=== PATIENT | female | born 1985 | race Caucasian/White ===

== ENCOUNTER 2017-08-14 14:14 | Outpatient (CLI) | payer OTHER ==
--- NOTE | 2017-08-14 15:55 | MRI ---
CERVICAL SPINE MRI WITHOUT IV CONTRAST: HISTORY: A 32-year-old female with a history of neck pain with right shoulder and right arm radiculopathy. Multiplanar, multisequence MR examination of the cervical spine is performed. Mild generalized disk desiccation changes and ligamentum and facet hypertrophic changes are noted. C2-C3 and C3-4 disks are unremarkable without canal or lateral recess or foraminal stenosis. At C4-C5, there is some minute disk bulging without significant canal, lateral recess, or foraminal s tenosis. At C5-C6, there are somewhat nodular focal protrusion changes with some indention of the ventral thec al sac involving both right and left central regions without overt cord compression or foraminal sten osis. At C6-C7, no canal or foraminal stenosis. At C7-T1, unremarkable. No evidence for spinal cord mass or spinal cord compression. IMPRESSION: Right central and left central protrusion changes at C5-C6 with some ventral thecal sac compression b ut without overt cord compression. No evidence for other significant acute process. POS: PAUL
== END 2017-08-14 14:15 | disposition home or self-care (01) ==
LOC: MRI 14:14
PROVIDERS: ATTEND Family Medicine
DX: M50.122 Cervical disc disorder at C5-C6 level with radiculopathy (principal); G95.29 Other cord compression
CPT/HCPCS: 72141

== ENCOUNTER 2019-09-22 10:11 | Outpatient (CLI) | payer OTHER ==
--- NOTE | 2019-09-22 11:14 | MMO ---
Bilateral MAMMO Bilat Diag [facility]. CLINICAL HISTORY: Patient is 34 years old and is seen for diagnostic exam. The patient has the following family history of breast cancer: paternal aunt. The patient has no personal history of cancer. VIEWS: The views performed were: bilateral craniocaudal with tomosynthesis; bilateral mediolateral oblique with tomosynthesis; and bilateral mediolateral with tomosynthesis. FILMS COMPARED: The present examination has been compared to a prior imaging study performed at [facility] on 09/22/2019. This study has been interpreted with the assistance of computer-aided detection. MAMMOGRAM FINDINGS: The breasts are heterogeneously dense, which could obscure a lesion on mammography. There are no suspicious masses, suspicious calcifications, or new areas of architectural distortion. IMPRESSION: THERE IS NO MAMMOGRAPHIC EVIDENCE OF MALIGNANCY. A ROUTINE FOLLOW-UP MAMMOGRAM AT AGE 42 IS RECOMMENDED. THE RESULTS OF THIS EXAM WERE SENT TO THE PATIENT. ACR BI-RADS Category 1 - Negative MAMMOGRAPHY NOTE: 1. A negative mammogram report should not delay a biopsy if a dominant of clinically suspicious mass is present. 2. Approximately 10% to 15% of breast cancers are not detected by mammography. 3. Adenosis and dense breasts may obscure an underlying neoplasm. Reported by: KIRA PENA MD Electonically Signed: [id number]
--- NOTE | 2019-09-22 11:50 | ULT ---
LEFT BREAST ULTRASOUND: Date: 09/22/2019 HISTORY: Palpable finding at the 2 o'clock position of the left breast, 3.0 cm from the nipple. FINDINGS: Real-time imaging of this area demonstrates mainly dense breast parenchyma. An area was marked by the technologist measuring 3-4 mm in size, which is an area of slight decreased echogenicity. This may r epresent a complex cyst, although on real-time imaging, this was not quite as discrete as it appears on these images and may just be part of the normal fibroglandular change. IMPRESSION: BI-RADS Category 2 - Benign findings.
== END 2019-09-22 10:12 | disposition home or self-care (01) ==
LOC: BICMAMMO 10:11
PROVIDERS: ATTEND Family Medicine
DX: N63.20 Unspecified lump in the left breast, unspecified quadrant (principal)
CPT/HCPCS: 77066; G0279